=== PATIENT | female | born 1990 | race Caucasian/White ===

== ENCOUNTER 2019-07-17 20:39 | Emergency (ER) | payer BC, OTHER ==
[~2019-07-17] VITALS: Ht 167.6 cm; Wt 77.1 kg
[2019-07-17 20:48] VITALS: BP 114/72
--- NOTE | 2019-07-17 20:56 | NUR ---
28 Y/O F PRESENTS TO ER C/O BUG BITE SINCE TODAY. BUG BITE LOCATED NEAR RIGHT CLAVICAL AREA. REDNESS NOTED. PAIN LEVEL 3/10, STINGING/BURNING PAIN. AREA IS TENDER TO TOUCH. VSS. MOTHER AT CHAIR SIDE. WAITING FOR PA TO EVALUATE PT. ALLERGIES: CIPRO AND SULFA MED HX: NONE
--- NOTE | 2019-07-17 21:08 | NUR ---
PA AT BEDSIDE
[2019-07-17 21:18] VITALS: BP 114/72
--- NOTE | 2019-07-17 21:18 | NUR ---
Patient discharged with v/s stable. Written and verbal after care instructions given and explained. Pt encouraged to trim nails and avoid scratching. Patient alert, oriented and verbalized understanding of instructions. Ambulatory with steady gait. All questions addressed prior to discharge. ID band removed. Patient advised to follow up with PMD. Rx of keflex 500mg and Hydrocortisone 1% topical cream was given. Patient educated on indication of medication including possible reaction and side effects. Opportunity to ask questions provided and answered.
== END 2019-07-17 21:18 | disposition home or self-care (01) ==
LOC: MED 20:39
DX: S20.361A Insect bite (nonvenomous) of right front wall of thorax, initial encounter (principal); F14.90 Cocaine use, unspecified, uncomplicated; Z88.1 Allergy status to other antibiotic agents; W57.XXXA Bitten or stung by nonvenomous insect and other nonvenomous arthropods, initial encounter; Y93.89 Activity, other specified; Y92.89 Other specified places as the place of occurrence of the external cause; Y99.8 Other external cause status
CPT/HCPCS: 99283